=== PATIENT | female | born 1940 | race Caucasian/White ===

== ENCOUNTER 2018-02-25 15:43 | Inpatient (IN) | payer MEDICARE ==
[~2018-02-25] VITALS: Ht 152.4 cm; Wt 58.5 kg
[~2018-02-25 15:43] MED LIST: ADULT LOW DOSE81 MG PO; ALPRAZOLAM0.25 M1 PO; AMITRIPTYLINE H25 M2; B12INJ; CALCIUM 600+D1 EAC4; CO Q-10400 MG; COREG6.25 MG; FISH OIL 1,2001 EAC4; HYDROCHLOROTHIA25 M1; LIPITOR20 MG; MULTIVITAMINS; NEURONTIN 300300 M1 PO; NEXIUM40 MG; NIFEDIPINE ER90 M1; NITROSTAT0.4 MG SUBLING; ROBAXIN 750 MG750 M1; TRIMO-SAN; VICODIN 5-5001 EACH; VITAMIN D-32000 UNIT; ZOLOFT100 MG
[2018-02-25 15:44] VITALS: BP 124/46
[2018-02-25 16:17] LABS: ABSOLUTE BASOPHILS 0.1 thou/uL (0.0-0.2); ABSOLUTE EOSINOPHILS 0.1 thou/uL (0.0-0.7); ABSOLUTE LYMPHOCYTES 1.4 thou/uL (0.8-5.3); ABSOLUTE MONOCYTES 0.4 thou/uL (0.0-1.2); ABSOLUTE NEUTROPHILS 3.5 thou/uL (1.6-8.1); BASOPHILS 1.4 %; HEMATOCRIT 45.2 % (37.0-47.0); HEMOGLOBIN 15.2 gm/dL (12.0-15.0); LYMPHOCYTES 25.1 %; MCH 31.9 pg (26.0-34.0); MCHC 33.5 g/dL (28.0-37.0); MCV 95.1 fL (80.0-100.0); MONOCYTES 7.6 %; MPV 7.5 fl. (7.2-11.1); NUCLEATED RBCS 0 /100WBC; PLATELET COUNT* 252 thou/uL (150-400); POLYS 64.9 %; RBC 4.76 mil/uL (4.20-5.00); RDW-CV 14.5 % (10.5-14.5); WBC 5.4 thou/uL (4.0-11.0)
[2018-02-25 16:27] LABS: ANION GAP 9 mmol/L (7-16); APTT 24.1 Seconds (25.0-31.3); BUN 15 mg/dL (7-18); CALCIUM 9.4 mg/dL (8.5-10.1); CHLORIDE 104 mmol/L (98-107); CO2 25 mmol/L (21-32); CREATININE 1.2 mg/dL (0.6-1.3); GLUCOSE 111 mg/dL (70-99); INR 1.1; POTASSIUM 4.2 mmol/L (3.5-5.1); PROTIME 10.3 Seconds (9.20-11.50); SODIUM 138 mmol/L (136-145)
[2018-02-25 16:38] LABS: ALBUMIN 3.4 g/dL (3.4-5.0); ALKALINE PHOSPHATASE 55 U/L (46-116); NT-PRO BRAIN NAT PEPTIDE 279 pg/mL (<300); SGOT 13 U/L (15-37); SGPT 15 U/L (30-65); TOTAL BILIRUBIN 0.9 mg/dL (<0.1-1.0); TOTAL PROTEIN 6.2 g/dL (6.4-8.2); TROPONIN-I LEVEL <0.06 ng/mL (<0.06)
[2018-02-25 20:15] VITALS: BP 144/63
[2018-02-25] MEDS ORDERED: PERCOCET 10-321 EACH PO (20:58)
[2018-02-25 21:00] VITALS: BP 142/76
[2018-02-26 00:48] VITALS: BP 118/70
[2018-02-26 04:43] VITALS: BP 104/65; BP 136/69
[2018-02-26 04:45] LABS: ABSOLUTE BASOPHILS 0.1 thou/uL (0.0-0.2); ABSOLUTE EOSINOPHILS 0.1 thou/uL (0.0-0.7); ABSOLUTE LYMPHOCYTES 2.5 thou/uL (0.8-5.3); ABSOLUTE MONOCYTES 0.6 thou/uL (0.0-1.2); ABSOLUTE NEUTROPHILS 3.2 thou/uL (1.6-8.1); BASOPHILS 0.9 %; EOSINOPHILS 0.8 %; HEMOGLOBIN 14.1 gm/dL (12.0-15.0); LYMPHOCYTES 39.4 %; MCH 31.7 pg (26.0-34.0); MCHC 33.5 g/dL (28.0-37.0); MCV 94.5 fL (80.0-100.0); MONOCYTES 8.7 %; MPV 7.6 fl. (7.2-11.1); NUCLEATED RBCS 0 /100WBC; PLATELET COUNT* 252 thou/uL (150-400); POLYS 50.2 %; RBC 4.44 mil/uL (4.20-5.00); WBC 6.3 thou/uL (4.0-11.0)
[2018-02-26 05:01] LABS: CHOLESTEROL 231 mg/dL (<200); HDL CHOLESTEROL 59 mg/dL (>40); LDL CHOLESTEROL 159 mg/dL (<100); TC:HDL 3.9 Ratio (Not establshd); TRIGLYCERIDE 68 mg/dL (<150); VLDL 14 mg/dL (<40)
[2018-02-26 05:11] LABS: SERUM ASSESSMENT CLEAR
--- NOTE | 2018-02-26 05:13 | NUR ---
PT ADMITTED TO ROOM 210 DURING THIS SHIFT; VSS, A+OX4, ROOM AIR, MILD DIZZINESS, MILD PAIN. SHE IS ABLE TO COMMUNICATE HER NEEDS TO STAFF EFFECTIVELY. CURRENT PAIN MEDICATION REGIMEN HAS BEEN ADEQUATE FOR CONTROLLING HER PAIN UP TO THIS TIME. NEUROLOGY CONSULTED.
[2018-02-26 05:50] LABS: CREATININE 1.2 mg/dL (0.6-1.3); POTASSIUM 4.7 mmol/L (3.5-5.1)
[2018-02-26 08:00] VITALS: BP 131/63
[2018-02-26 11:00] VITALS: BP 132/63
[2018-02-26 13:10] LABS: GLYCOHEMOGLOBIN (HGB A1C) 4.7 % (4.8-5.6)
--- NOTE | 2018-02-26 14:38 | 2DMMODE ---
[place] [address] 2 D/M-MODE ECHOCARDIOGRAM Name: JEROME LOPEZ I Room: [address] IN [facility]#: [id number] Admission: 02/25/18 Attend Phys: Abilio Lan, Discharge: Date of : 38 Date of Service: 02/26/18 1438 Report #: [id number] THIS REPORT FOR: //name// APPROVED REPORT Study performed: 02/26/2018 12:17:18 EXAM: Comprehensive 2D, Doppler, and color-flow Echocardiogram Patient Location: In-Patient Room #: [facility] Status: routine BSA: 1.60 HR: 58 bpm BP: 136/69 mmHg Rhythm: NSR Other Information Study Quality: Good Indications CVA/TIA Echo Enhancing Agent Indication: Rule out Shunt Agent(s) / Amount(s) Used: Agitated Saline 10 cc 2D Dimensions LVEF(%): 65.91 (>50%) IVSd: 8.00 (7-11mm) LVOT Diam: 16.85 (18-24mm) LVDd: 40.65 mm PWd: 9.77 (7-11mm) Ascending Ao: 32.84 (22-36mm) LVDs: 26.08 (25-40mm) Aortic Root: 30.75 mm Moreau's LVEF: 65.91 % Volumes Left Atrial Volume (Systole) LA ESV Index: 29.70 mL/m2 Aortic Valve AoV Peak Elmer.: 1.34 m/s AO Peak Gr.: 7.16 mmHg LVOT Max P.10 mmHg AO Mean Gr.: 4.08 mmHg LVOT Mean P.96 mmHg LVOT Max V: 1.13 m/s AO V2 VTI: 28.57 cm LVOT Mean V: 0.62 m/[place] [address] 2 D/M-MODE ECHOCARDIOGRAM Name: JEROME LOPEZ I Room: [address] IN [facility]#: [id number] Admission: 02/25/18 Attend Phys: Abilio Lan, Discharge: Date of : 38 Date of Service: 02/26/18 1438 Report #: [id number] DHARMESH (VTI): 2.12 cm2 LVOT V1 VTI: 27.20 cm Mitral Valve E/A Ratio: 1.04 MV Decel. Time: 210.62 ms MV E Max Elmer.: 0.96 m/s MV PHT: 61.08 ms MVA (PHT): 3.60 cm2 TDI E/Lateral E': 9.60 E/Medial E': 12.00 Medial E' Elmer.: 0.08 m/s Lateral E' Elmer.: 0.10 m/s Pulmonary Valve PV Peak Elmer.: 0.82 m/s PV Peak Gr.: 2.68 mmHg Tricuspid Valve TR Peak Gr.: 27.88 mmHg RVSP: 32.00 mmHg Left Ventricle The left ventricle is normal size. There is normal LV segmental wall motion. There is normal left ventricular wall thickness. Left ventricular systolic function is normal. LVEF is 55-60%. Transmitral Doppler flow pattern suggests pseudonormalization. Right Ventricle The right ventricle is normal size. The right ventricular systolic function is normal. Atria The left atrium size is normal. PFO is noted. The right atrium size is normal. Aortic Valve The aortic valve is normal in structure. No aortic regurgitation is present. There is no aortic valvular stenosis. Mitral Valve The mitral valve is normal in structure. Trace mitral regurgitation. No evidence of mitral valve stenosis. Tricuspid Valve The tricuspid valve is normal in structure. The RVSP is 30-35 mmHg. Trace tricuspid [place] [address] 2 D/M-MODE ECHOCARDIOGRAM Name: JEROME LOPEZ I Room: [address] IN .R.#: [id number] Admission: 02/25/18 Attend Phys: Abilio Lan, Discharge: Date of : 38 Date of Service: 02/26/18 1438 Report #: [id number] Pulmonic Valve The pulmonary valve is normal in structure. There is no pulmonic valvular regurgitation. Great Vessels The aortic root is normal in size. IVC is normal in size and collapses with >50% inspiration Pericardium There is no pericardial effusion. <Conclusion> The left ventricle is normal size. There is normal left ventricular wall thickness. Left ventricular systolic function is normal. LVEF is 55-60%. Transmitral Doppler flow pattern suggests pseudonormalization. The RVSP is 30-35 mmHg. Trace tricuspid regurgitation. IVC is normal in size and collapses with >50% inspiration PFO is noted. <ELECTRONICALLY SIGNED> By: Brooks Ramirez MD, FACC 02/26/18 1438 1438 1438 Brooks Ramirez MD, FACC /INF
--- NOTE | 2018-02-26 14:44 | EKG ---
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
--- NOTE | 2018-02-26 15:15 | NUR ---
Pt is A&O. Resides at home with her dtr, NADIYA and grandson. Pt is independent with ADLs, assists around the house and drives. Pt has a walker and cane that she can use, states she doesn't use the walker much, but does use the cane when out in the community. No home o2. No hx of HH or SNF. Strong support sx. Goal is to return home at dc, no needs anticipated.
[2018-02-26 15:30] VITALS: BP 108/56
--- NOTE | 2018-02-26 19:26 | NUR ---
PATINET RESTING IN BED. UP AD CESARIO IN ROOM. PATINET UTILIZES 4 POINT CANE AT HOME AND WALKER FOR AMBULATION HERE. UP STEADY. AOX4. NEURO CONSULT APPRECIATED. HOURLY ROUNDING COMPLETED FO RPATIET SAFETY.
[2018-02-26 20:00] VITALS: BP 131/71
[2018-02-27 00:28] VITALS: BP 140/93
--- NOTE | 2018-02-27 03:17 | NUR ---
PT ALERT ORIENTED. UP AD CESARIO IN ROOM. TELEMETRY SHOWS SR. ON RA. WILL CONTINUE TO MONITOR.
[2018-02-27 03:33] VITALS: BP 140/60
[2018-02-27 08:00] VITALS: BP 113/62
--- NOTE | 2018-02-27 12:00 | NUR ---
ASSESSMENT COMPLETED REFER TO COMPUTER CHARTING. FIRE MANAGER TRACKING SB. PATIENT RESTING IN BED WITH FAMILY AT BEDSIDE. IV SALINE LOCKED. ON ROOM AIR. BED IN LOW AND LOCKED POSITION. CALL LIGHT WITHIN REACH. DISCHARGE ORDERS RECIEVED. DISCHARGE INSTRUCTIONS GIVEN TO PATIENT AND FAMILY. REPORTING NO QUESTIONS OR CONCERNS AT THIS TIME. ALL PERSONAL BELONGINGS GATHERED. IV AND FIRE MANAGER TO BE REMOVED BEFORE DISCHARGE.
[2018-02-27 12:02] VITALS: BP 147/59
[2018-02-27 12:51] VITALS: BP 147/59
[2018-02-27] MEDS ORDERED: KEPPRA 500 MG500 M1 PO (12:57)
--- NOTE | 2018-03-05 13:48 | EEG ---
[address] [address] EEG STUDY REPORT Name: JEROME LOPEZ I Room: [address] IN M.R.#: [id number] Admission: 02/25/18 Attend Phys: Abilio Lan MD Discharge: 02/27/18 Date of : 38 Report #: [id number] THIS REPORT FOR: //name// CC: Abilio Kyle DATE OF SERVICE: 02/27/2018 This patient is being evaluated for episode of syncope. EEG was done by placing the electrodes by standard 10-20 system of electrode placement. Both referential and sequential montages were used for recording. Background activity in this patient's EEG is about 11 Hz and 40 microvolt. This patient became drowsy that is associated with bilateral slowing and vertex sharp waves. Photic stimulation is unremarkable. Throughout the record, no active epileptiform activity was noticed. IMPRESSION: This patient's electroencephalogram is unremarkable. Thank you very much for this referral. <ELECTRONICALLY SIGNED> By: Bobo Mendes MD 03/05/18 1348 [id number] [id number] Mendes MD /nt
--- NOTE | 2018-03-05 13:48 | CON ---
[address] [address] CONSULTATION Name: JEROME LOPEZ I Room: [address] IN M.R.#: [id number] Admission: 02/25/18 Attend Phys: Abilio Lan MD Discharge: 02/27/18 Date of : 38 Report #: [id number] THIS REPORT FOR: //name// CC: Abilio Kyle DATE OF SERVICE: 02/26/2018 HISTORY OF PRESENT ILLNESS: This is a 77-year-old female patient who was admitted with an episode of seizure-like activity. She said she was talking to her daughter. She had some speech difficulty and next thing they noticed is that her eyes roll into her head and she had some shakiness. She did have some postictal period. She recovered from that. This was a moderately severe episode. Prior to this, she had some episode of tenseness. She was on some medication, which was changed to gabapentin. This episode happened spontaneously without any trauma. REVIEW OF SYSTEMS: Poor because she does not remember all her medications. 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 She was on disease modifying treatment. She does not know which medicine she took. It was a pill according to her. It looks like she just stopped it by herself. She does have some anxiety. She does have a history of hypertension as I understand. She has been on multiple medications at one time or other. She does have a history of thyroidectomy, cholecystectomy, breast biopsy, cardiac catheterization broken pelvis and she has been diagnosed with MS. I carried out 14-point review of system and the above was the relevant 14-point review of system in this patient. PAST MEDICAL HISTORY: Diagnosis of MS. FAMILY HISTORY: Negative for any early age stroke. SOCIAL HISTORY: She does not smoke and drink alcohol on special occasions. PHYSICAL EXAMINATION: NEUROLOGIC: Indicates she is alert, responsive. Her speech, concentration, fund of knowledge and memory is at her baseline. Cranial nerve examination 2-12 looks unremarkable. She moves all 4 extremities. Her position sense looks intact. Reflexes look symmetrical. Tone looks symmetrical. I do not think she has cerebellar sign or papilledema. She is a well-developed individual who does not have any dysmorphic features of eyes, ears and face. Her vision and hearing looks adequate. NECK: She has no thyroid mass. EXTREMITIES: Her pulses are difficult to feel, but I think are palpable. She has no edema, cyanosis or jaundice. CARDIAC: Unremarkable. RESPIRATORY: No respiratory difficulty [place] [address] CONSULTATION Name: JEROME LOPEZ Justin Room: [address]#: [id number] Admission: 02/25/18 Attend Phys: Abilio Lan MD Discharge: 02/27/18 Date of : 38 Report #: [id number] VITAL SIGNS: Blood pressure is 136/69, respirations 15, pulse is 54, temperature is 98.6. LABORATORY DATA: Indicate a normal white count at 6.3. She did have a CT scan of the head, which showed what does indicate chronic microvascular ischemia, but that will be difficult to distinguish from MS. IMPRESSION: 1. It is possible this patient had a seizure which may be secondary to multiple sclerosis. 2. Abnormal MRI. 3. Diagnosis of multiple sclerosis, which was late in onset but according to the patient, it is still relapsing remitting. I do not have any records to confirm that. RECOMMENDATIONS: I discussed with the patient that we will do only urgent workup here and rest of the management will be deferred to Dr. Maurer at [facility]. I will go ahead and do an MRI to look for any new lesions. I will check an EEG for any seizure activity and until this one shows something, I might put her on Keppra instead of gabapentin she is on. She does have a pretty significantly elevated LDL and that may have to be further addressed. She is not compliant with medical treatment and I discussed with her that can lead to multiple complications and she understands that and says she will try to be more compliant. Thank you very much for this referral. <ELECTRONICALLY SIGNED> By: Bobo Mendes MD 03/05/18 1348 1046 [id number] Mendes MD /nt
== END 2018-02-27 13:24 | disposition home or self-care (01) | DRG 101 ==
LOC: M.ERS 15:43 → M.2W 16:49 → M.TBA-ER 16:49 → M.2W 20:43
PROVIDERS: Nurse Practitioner Family; ADMIT Internal Medicine
DX: R56.9 Unspecified convulsions (principal); G89.29 Other chronic pain; G35 Multiple sclerosis; E89.0 Postprocedural hypothyroidism; F41.9 Anxiety disorder, unspecified; Z79.899 Other long term (current) drug therapy; Z79.82 Long term (current) use of aspirin; Z90.49 Acquired absence of other specified parts of digestive tract; Z88.0 Allergy status to penicillin; Z88.2 Allergy status to sulfonamides; I25.2 Old myocardial infarction; Z86.73 Personal history of transient ischemic attack (TIA), and cerebral infarction without residual deficits

== ENCOUNTER 2019-08-07 20:36 | Emergency (ER) | payer MEDICARE ==
[~2019-08-07] VITALS: Ht 154.9 cm; Wt 63.6 kg
[~2019-08-07 20:36] MED LIST changes: +KEPPRA 500 MG500 M1 PO; +PERCOCET 10-321 EACH PO
[2019-08-07 21:09] LABS: ABSOLUTE BASOPHILS 0.1 thou/uL (0.0-0.2); ABSOLUTE EOSINOPHILS 0.2 thou/uL (0.0-0.7); ABSOLUTE LYMPHOCYTES 2.5 thou/uL (0.8-5.3); ABSOLUTE MONOCYTES 0.7 thou/uL (0.0-1.2); ABSOLUTE NEUTROPHILS 3.9 thou/uL (1.6-8.1); BASOPHILS 0.9 %; EOSINOPHILS 2.9 %; HEMATOCRIT 46.3 % (37.0-47.0); HEMOGLOBIN 15.7 gm/dL (12.0-15.0); LYMPHOCYTES 33.9 %; MCH 31.3 pg (26.0-34.0); MCV 92.3 fL (80.0-100.0); MPV 7.7 fl. (7.2-11.1); NUCLEATED RBCS 0 /100WBC; PLATELET COUNT* 269 thou/uL (150-400); POLYS 53.3 %; RBC 5.02 mil/uL (4.20-5.00); RDW-CV 13.6 % (10.5-14.5); WBC 7.3 thou/uL (4.0-11.0)
[2019-08-07 21:20] LABS: INR 0.9; PROTIME 9.5 Seconds (9.20-11.50)
[2019-08-07 21:47] LABS: CALCIUM 9.4 mg/dL (8.5-10.1); CREATININE 1.1 mg/dL (0.6-1.3); POTASSIUM 3.9 mmol/L (3.5-5.1)
[2019-08-07 21:56] LABS: ALBUMIN 3.3 g/dL (3.4-5.0); TOTAL BILIRUBIN 0.4 mg/dL (<0.1-1.0); TOTAL PROTEIN 6.1 g/dL (6.4-8.2)
[2019-08-07] MEDS ORDERED: PREDNISONE 20 M20 MG PO (23:14)
[2019-08-07 23:52] VITALS: BP 157/72
--- NOTE | 2019-08-08 18:21 | EKG ---
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1940 Requested By: Dea Sykes Order Number: [id number] MD: Brooks Ramirez Measurements Intervals [place] Rate: 57 P: 0 PA: 162 QRS: -12 QRSD: 93 T: 10 QT: 422 QTc: 411 Interpretive Statements Sinus rhythm with premature atrial contractions Probable left ventricular hypertrophy Nonspecific T-wave flattening Compared to ECG 02/25/2018 15:52:59 Wandering atrial pacemaker now present Sinus rhythm no longer present T-wave abnormality still present Electronically Signed On 08-08-2019 18:21:03 CDT by Brooks Ramirez [email or web address] <ELECTRONICALLY SIGNED> By: Brooks Ramirez MD, FACC 08/08/19 1821 41 41 Brooks Ramirez MD, FACC /EPI
== END 2019-08-07 23:52 | disposition home or self-care (01) ==
LOC: M.ERS 20:36
PROVIDERS: Personal Emergency Response Attendant
DX: G35 Multiple sclerosis (principal); E89.0 Postprocedural hypothyroidism; Z88.0 Allergy status to penicillin; Z88.2 Allergy status to sulfonamides; Z90.49 Acquired absence of other specified parts of digestive tract